=== PATIENT | male | born 1945 | race Caucasian/White ===

== ENCOUNTER 2018-05-23 14:27 | Inpatient (IN) | payer MEDICARE ==
[~2018-05-23] VITALS: Ht 175.3 cm; Wt 98.9 kg
--- NOTE | ~2018-05-23 | CON ---
[address] [address] CONSULTATION Name: CANDACE AC Room: [address] IN M.R.#: [id number] Admission: 05/23/18 Attend Phys: Jerrod Solis MD Discharge: Date of : 45 Report #: [id number] THIS REPORT FOR: //name// CC: Jerrod Mera DATE OF SERVICE: 05/24/2018 HISTORY OF PRESENT ILLNESS: This is a 72-year-old male patient who was seen by me for episode of dizziness yesterday. The patient indicates that he was basically sitting and 20 seconds, he was extremely dizzy. He did not pass out. The episode came spontaneously. He had no tonic-clonic activity associated with that. He improved, but then, he had 3 more similar episodes. He never had any symptoms like this before. He is not on any antihypertensive medication. Rather, he has been healthy according to him. REVIEW OF SYSTEMS: Indicate he denies any eye, ENT, cardiac, respiratory, GI, , musculoskeletal, constitutional, dermatological, hematological, psychiatric, throat, allergic symptom associated with present symptomatology. PAST MEDICAL HISTORY: Negative for this kind of spell. FAMILY HISTORY: Negative for congenital epilepsy. SOCIAL HISTORY: He says he does not drink any alcohol or smoke now. PHYSICAL EXAMINATION: Indicates he is alert, responsive, able to follow simple and complex commands. His speech, concentration, fund of knowledge and memory is at his baseline. Cranial nerve examination 2-12 looks unremarkable. His strength, sensation, reflexes and tone is symmetrical. He has no cerebellar sign. He has no papilledema. I did make him walk and he is able to walk and tandem walk with reasonable stability. He is a well-developed individual who does not have any dysmorphic features of eyes, ears and face. His vision and hearing look adequate. He has no thyroid mass. His pulses are palpable. He has no edema, cyanosis or jaundice. His cardiac examination is unremarkable. He does not have any respiratory difficulty or rhonchi on either side. Blood pressure is 139/59, respirations are 16, pulse is 49 and temperature is 97.7. LABORATORY DATA: His white count is 8.2 and his sodium is normal. He did have a CT scan of the head, which was unremarkable. IMPRESSION: It would be desirable to do neurological workup to exclude any neurological etiology for the patient's dizziness because symptoms are somewhat unusual, but emphasis should be still on systemic workup, [place] [address] CONSULTATION Name: CANDACE AC Room: [address] IN [facility]#: [id number] Admission: 05/23/18 Attend Phys: Jerrod Solis MD Discharge: Date of : 45 Report #: [id number] workup because his heart rate does drop in 40s even when he is not having dizziness. He will need extensive workup for that. To evaluate the patient further, I will go ahead and do an MRI and MRA in this patient to make sure there is no etiology there. I will go ahead and do an EEG. RECOMMENDATIONS: 1. MRI of the brain. 2. MRA of [place] of [place]. 3. EEG. We will see what these workup show and decide about any further management after that. Thank you very much for this referral and we will follow this patient along with you. By: 0900 [id number] Byrd MD /nt
[~2018-05-23 14:27] MED LIST: NOHOMEMEDICATIONS
[2018-05-23] MEDS ORDERED: ATORVASTATIN CA40 MG PO (14:39)
[2018-05-23] MEDS ORDERED: SYNTHROID50 MCG PO (14:40)
[2018-05-23 15:20] LABS: ABSOLUTE EOSINOPHILS 0.2 thou/uL (0.0-0.7); ABSOLUTE MONOCYTES 0.6 thou/uL (0.0-1.2); ABSOLUTE NEUTROPHILS 4.9 thou/uL (1.6-8.1); BASOPHILS 0.6 %; EOSINOPHILS 2.7 %; HEMATOCRIT 42.5 % (42.0-52.0); HEMOGLOBIN 14.3 gm/dL (14.0-18.0); LYMPHOCYTES 25.5 %; MCH 30.6 pg (26.0-34.0); MCHC 33.6 g/dL (28.0-37.0); MONOCYTES 7.8 %; MPV 7.2 fl. (7.2-11.1); NUCLEATED RBCS 0 /100WBC; PLATELET COUNT* 198 thou/uL (150-400); POLYS 63.4 %; RBC 4.67 mil/uL (4.50-6.00); RDW-CV 12.6 % (10.5-14.5); WBC 7.7 thou/uL (4.0-11.0)
[2018-05-23 15:27] LABS: ANION GAP 7 mmol/L (7-16); BUN 15 mg/dL (7-18); CALCIUM 9.1 mg/dL (8.5-10.1); CHLORIDE 103 mmol/L (98-107); CO2 29 mmol/L (21-32); GLUCOSE 117 mg/dL (70-99); SODIUM 139 mmol/L (136-145)
[2018-05-23 15:38] LABS: ALBUMIN 3.9 g/dL (3.4-5.0); ALKALINE PHOSPHATASE 66 U/L (46-116); LIPASE 160 U/L (73-393); NT-PRO BRAIN NAT PEPTIDE 122 pg/mL (<300); SGOT 27 U/L (15-37); SGPT 47 U/L (30-65); TOTAL BILIRUBIN 0.5 mg/dL (<0.1-1.0); TOTAL PROTEIN 7.6 g/dL (6.4-8.2); TROPONIN-I LEVEL <0.06 ng/mL (<0.06)
[2018-05-23 17:46] VITALS: BP 138/63
[2018-05-23 18:00] VITALS: BP 167/42
--- NOTE | 2018-05-23 19:14 | NUR ---
PT ADMITTED TO ROOM 211 VIA CART FROM ED AT 1750. ASSESSMENT CHARTED IN ADMISSION. VSS. PT STEADY ON FEET. AT THE BEDSIDE. PT'S QUESTIONS HAVE BEEN ANSWERED AND ADMITTING MD NOTIFIED.
[2018-05-23 20:00] VITALS: BP 133/63
[2018-05-24 00:56] VITALS: BP 130/52
[2018-05-24 03:22] LABS: ABSOLUTE EOSINOPHILS 0.3 thou/uL (0.0-0.7); ABSOLUTE LYMPHOCYTES 2.4 thou/uL (0.8-5.3); ABSOLUTE MONOCYTES 0.7 thou/uL (0.0-1.2); ABSOLUTE NEUTROPHILS 4.8 thou/uL (1.6-8.1); BASOPHILS 0.4 %; EOSINOPHILS 3.1 %; HEMATOCRIT 41.3 % (42.0-52.0); HEMOGLOBIN 13.9 gm/dL (14.0-18.0); LYMPHOCYTES 29.1 %; MCH 31.1 pg (26.0-34.0); MCHC 33.7 g/dL (28.0-37.0); MCV 92.3 fL (80.0-100.0); MONOCYTES 8.9 %; MPV 7.5 fl. (7.2-11.1); NUCLEATED RBCS 0 /100WBC; PLATELET COUNT* 195 thou/uL (150-400); POLYS 58.5 %; RBC 4.47 mil/uL (4.50-6.00); RDW-CV 12.6 % (10.5-14.5); WBC 8.2 thou/uL (4.0-11.0)
[2018-05-24 03:37] LABS: CALCIUM 9.4 mg/dL (8.5-10.1); POTASSIUM 4.7 mmol/L (3.5-5.1)
[2018-05-24 04:52] VITALS: BP 139/59
--- NOTE | 2018-05-24 04:59 | NUR ---
ASSUMED CARE OF PT AT 1900 PT ALERT AND ORIENTED X4 VS AND ASSESSMENT STABLE, PT SB ON THE MONITOR. PT DENIED ANY COMPLAINTS AND SLEPT THROUGH THE NIGHT. WILL CONTINUE PLAN OF CARE.
[2018-05-24 07:08] VITALS: BP 109/58
--- NOTE | 2018-05-24 10:25 | EKG ---
[place] [address] ELECTROCARDIOGRAM REPORT Name: CANDACE AC Room: [address] ADM IN M.R.#: [id number] Admission: 05/23/18 Attend Phys: Jerrod Solis MD Discharge: Date of : 45 Report #: [id number] THIS REPORT FOR: //name// [facility] ED Test Date: 2018-05-23 Test Time: 14:42:02 Pat Name: CANDACE AC Department: Room: [facility] Gender: M Quality Analyst: RHONDA : 1945 Requested By: Omkar Godoy Order Number: [id number] MD: Juan Reyez Measurements Intervals [place] Rate: 57 P: 38 [place]: 204 QRS: 2 QRSD: 94 T: 65 QT: 455 QTc: 443 Interpretive Statements Sinus rhythm Inferior infarct, old No previous ECG available for comparison Electronically Signed On 05-24-2018 10:24:42 SUPERVISOR TESTING by Juan Reyez [email or web address] <ELECTRONICALLY SIGNED> By: Juan Reyez MD, [facility] 05/24/18 1024 1442 1442 Juan Reyez MD, FACC /EPI
[2018-05-24 11:19] VITALS: BP 130/62
--- NOTE | 2018-05-24 14:37 | 2DMMODE ---
[place] [address] 2 D/M-MODE ECHOCARDIOGRAM Name: CANDACE AC Room: [address] IN [facility]#: [id number] Admission: 05/23/18 Attend Phys: Jerrod Solis, Discharge: Date of : 45 Date of Service: 05/24/18 1437 Report #: [id number] THIS REPORT FOR: //name// APPROVED REPORT Study performed: 05/24/2018 10:10:21 EXAM: Comprehensive 2D, Doppler, and color-flow Echocardiogram Patient Location: In-Patient Room #: [facility] Status: routine BSA: 2.15 HR: 57 bpm BP: 139/59 mmHg Rhythm: NSR Other Information Study Quality: Good Indications Near syncope, dizziness 2D Dimensions IVSd: 10.69 (7-11mm) LVOT Diam: 21.23 (18-24mm) LVDd: 38.53 mm PWd: 10.79 (7-11mm) Ascending Ao: 35.05 (22-36mm) LVDs: 22.89 (25-40mm) Aortic Root: 39.08 mm Volumes Left Atrial Volume (Systole) LA ESV Index: 42.10 mL/m2 Aortic Valve AoV Peak [place].: 1.45 m/s AO Peak Gr.: 8.46 mmHg LVOT Max P.02 mmHg AO Mean Gr.: 4.19 mmHg LVOT Mean P.21 mmHg LVOT Max V: 1.32 m/s AO V2 VTI: 30.44 cm LVOT Mean V: 0.81 m/s JACQUELINE (VTI): 3.70 cm2 LVOT V1 VTI: 31.85 cm Mitral Valve E/A Ratio: 0.88 MV Decel. Time: 229.37 ms MV E Max Elgin.: 0.94 m/[place] [address] 2 D/M-MODE ECHOCARDIOGRAM Name: CANDACE AC Room: [address] IN .R.#: [id number] Admission: 05/23/18 Attend Phys: Jerrod Solis, Discharge: Date of : 45 Date of Service: 05/24/18 1437 Report #: [id number] MV PHT: 66.52 ms MVA (PHT): 3.31 cm2 TDI E/Lateral E': 7.83 E/Medial E': 11.75 Medial E' Elgin.: 0.08 m/s Lateral E' [place].: 0.12 m/s Pulmonary Valve PV Peak [place].: 1.08 m/s PV Peak Gr.: 4.68 mmHg Tricuspid Valve RAP Estimate: 5.00 mmHg TR Peak Gr.: 18.72 mmHg RVSP: 23.00 mmHg PA Pressure: 23.00 mmHg Left Ventricle The left ventricle is normal size. There is normal LV segmental wall motion. There is normal left ventricular wall thickness. Left ventricular systolic function is normal. The left ventricular ejection fraction is within the normal range. LVEF is 65-70%. Grade I - abnormal relaxation pattern. Right Ventricle The right ventricle is normal size. The right ventricular systolic function is normal. Atria Left atrium is mild to moderately dilated. The right atrium size is normal. Aortic Valve The aortic valve is normal in structure. No aortic regurgitation is present. There is no aortic valvular stenosis. Mitral Valve The mitral valve is normal in structure. Trace mitral regurgitation. No evidence of mitral valve stenosis. Tricuspid Valve The tricuspid valve is normal in structure. Trace tricuspid regurgitation. Pulmonic Valve The pulmonary valve is normal in structure. Mild [place] [address] 2 D/M-MODE ECHOCARDIOGRAM Name: ACCANDACE MADELYN Room: [address]#: [id number] Admission: 05/23/18 Attend Phys: Jerrod Solis, Discharge: Date of : 45 Date of Service: 05/24/18 1437 Report #: [id number] Great Vessels The aortic root is normal in size. IVC is normal in size and collapses >50% with inspiration. Pericardium There is no pericardial effusion. <Conclusion> LVEF is 65-70%. Left atrium is mild to moderately dilated. <ELECTRONICALLY SIGNED> By: Juan Reyez MD, FACC 05/24/18 1437 1437 143 Juan Reyez MD, FACC /INF
--- NOTE | 2018-05-24 15:55 | NUR ---
ASSESSMENT COMPLETE. PT ALERT AND ORIENTED X4. DENIES PAIN AND DIZZINESS. PT CAN DC HOME IF CARDIOLOGY AND NEURO CHECK OFF. PT CURRENTLY GETTING MRI AND MRA AND US OF CAROTIDS. PT IS UP AD SANTOS. TOLERATING DIET. DENIES N/V. PT IS ON ROOM AIR WITH BOBO BEDOYA VSS. SEE ASSESSMENT AND VITALS FOR OTHER DETAILS, CALL LIGHT WITHIN REACH, WILL CONTINUE PLAN OF CARE
--- NOTE | 2018-05-24 17:48 | NUR ---
RECEIVED REPORT FROM REGGIE AND ASSUMED CARE OF PT @ 1600.PT IS A/OX4,VSS,TRACING SB ON THE MONITOR.PT IS CALM AND COOPERATIVE WITH NO C/O PAIN.PT LEFT RESTING IN BED WITH CALL LIGHT WITHIN REACH.HOURLY ROUNDING COMPELTED FOR SAFETY.WILL CONTINUE TO MONITOR FOR DURATION OF SHIFT.
[2018-05-24 20:00] VITALS: BP 142/59
[2018-05-25] VITALS: BP 131/56
[2018-05-25 04:00] VITALS: BP 123/53
--- NOTE | 2018-05-25 06:28 | NUR ---
ASSUMED PT CARE @ 1930. PT AWAKE AND ORIENTED X4. VSS ON ROOM AIR. DENIES ANY PAIN AND DISCOMFORT. SUPERVISOR BOARDING IN PLACE TRACING SINUS BRADYCARDIA. PT ABLE TO SLEEP THROUGH THE NIGHT. HOURLY ROUNDING DONE FOR PT SAFETY. CALL LIGHT WITHIN REACH.
[2018-05-25 07:55] VITALS: BP 143/47
--- NOTE | 2018-05-25 07:55 | NUR ---
RECEIVED REPORT FORM JOSIE/SAÚL AND ASSUMED CARE OF PT @ 0281.PT IS A/O X4,VSS,TRACING SB WITH 1ST DEGREE ON THE MONITOR.IV PATENT WITH IVF INFUSING PER ORDERS.PT IS CALM AND COOPERATIVE WITH NO C/O PAIN.PT IS UP STAND BY ASSIST IN ROOM.CALL LIGHT AND FALL PRECAUTIONS IN PLACE.WILL CONTINUE TO MONITOR.
--- NOTE | 2018-05-25 09:28 | CON ---
[address] [address] CONSULTATION Name: CANDACE AC Room: [address] IN .R.#: [id number] Admission: 05/23/18 Attend Phys: Jerrod Solis MD Discharge: Date of : 45 Report #: [id number] THIS REPORT FOR: //name// CC: Jerrod Mera DO DATE OF SERVICE: 05/24/2018 TYPE OF REPORT: Cardiology consultation. HISTORY OF PRESENT ILLNESS: The patient is a 72-year-old white male who I was asked to see in the hospital today after he complained of dizzy spell. The patient has no previous history of heart disease. He states that he was doing well until yesterday morning. He was sitting at the computer. He suddenly felt lightheaded. The room seemed to spin. This occurred several times. He finally came to the Emergency Room yesterday and was admitted. Cardiology consultation requested. The patient stays fairly active and denies any significant chest pain, shortness of breath or palpitations. He has had no recent vomiting, fever, diarrhea or bleeding. PAST MEDICAL HISTORY: He has had previous tonsillectomy and hernia repair. No history of hypertension or diabetes. He does have a history of hyperlipidemia. MEDICATIONS: His only medication consists Synthroid and Lipitor. ALLERGIES: He has no known drug allergies. FAMILY HISTORY: His father had heart disease. SOCIAL HISTORY: He is . He stays fairly active. No smoking or alcohol abuse. REVIEW OF SYSTEMS: He has had no history of stroke, asthma, peptic ulcer disease, liver disease or kidney disease. He had skin cancer removed in the past. He wears glasses. PHYSICAL EXAMINATION: GENERAL: Revealed an elderly male, appeared in no distress. VITAL SIGNS: He had a blood pressure 130/60 and pulse 60. He is afebrile. HEENT: He is anicteric. Conjunctivae pink. Mucous members moist. NECK: Veins nondistended. No carotid bruits. Neck supple. CHEST: Clear to auscultation. CARDIOVASCULAR: Regular rate and rhythm. ABDOMEN: Soft. EXTREMITIES: [place] [address] CONSULTATION Name: CANDACE AC Room: [address] IN [facility]#: [id number] Admission: 05/23/18 Attend Phys: Jerrod Solis MD Discharge: Date of : 45 Report #: [id number] SKIN: Warm and dry. NEUROLOGICAL: Nonfocal. RADIOLOGICAL DATA: ECG showed a sinus rhythm, nonspecific ST-segment changes. His workup so far, he had portable chest x-ray that showed normal heart size and clear lung rose. CT scan of the head was performed that showed no acute abnormality. He had echocardiogram, showed normal left ventricular function. LABORATORY WORK: Sodium 142 and creatinine 1.0. Troponin 0.06. T4 0.8. White blood cell count 8.2 and hemoglobin 13.9. IMPRESSION AND RECOMMENDATIONS: 1. Dizzy spell. Reason unclear. No evidence of any arrhythmia. The patient does not appear to be dehydrated. Possible vertigo. 2. History of hypothyroidism. 3. History of hyperlipidemia. <ELECTRONICALLY SIGNED> By: Juan Reyez MD, FACC 05/25/18 0928 1515 [id number] Reyez MD, FACC /nt
[2018-05-25 12:00] VITALS: BP 128/46
[2018-05-25 13:02] VITALS: BP 143/47
--- NOTE | 2018-05-25 13:18 | NUR ---
PT OK FOR DISCHARGE.PAPERWORK COMPLETED AND GIVEN TO PT.NO SCRIPTS GIVEN.IV REMOVED.HEART MONITOR REMOVED AND RETURNED TO THE NURSING STATION.ALL PERSONAL BELONGINGS PACKED AND TAKEN WITH PT.PT WALKED OUT BY NURSING STAFF TO PERSONAL VEHICLE.
== END 2018-05-25 13:20 | disposition home or self-care (01) | DRG 641 ==
LOC: M.ERS 14:27 → M.2W 16:57 → M.TBA-ER 16:57 → M.2W 17:55
PROVIDERS: Emergency Medicine Emergency Medical Services; ADMIT Internal Medicine
DX: E86.0 Dehydration (principal); R00.1 Bradycardia, unspecified; L59.8 Other specified disorders of the skin and subcutaneous tissue related to radiation; K21.9 Gastro-esophageal reflux disease without esophagitis; Z79.899 Other long term (current) drug therapy; E78.5 Hyperlipidemia, unspecified; I10 Essential (primary) hypertension; E03.9 Hypothyroidism, unspecified; Z87.891 Personal history of nicotine dependence